=== PATIENT | female | born 1960 | race American Indian/Alaskan Native ===

== ENCOUNTER 2022-02-21 13:13 | Emergency (ER) | payer MEDICARE ==
[2022-02-21 13:21] VITALS: BP 171/99
[2022-02-21 14:04] LABS: Basophils % (Auto) 0.3 % (0.0-1.8); Eosinophils % (Auto) 0.1 % (0.0-4.3); Hematocrit 45.8 % (30.3-42.9); Lymphocytes # (Auto) 1.1 K/mm3 (1.2-5.4); Lymphocytes % (Auto) 14.7 % (13.4-35.0); Mean Corpuscular HGB Conc 33 % (30-34); Mean Corpuscular Volume 86 fl (79-97); Monocytes # (Auto) 0.3 K/mm3 (0.0-0.8); Monocytes % (Auto) 3.5 % (0.0-7.3); Platelet Count 244 K/mm3 (140-440); Red Blood Count 5.32 M/mm3 (3.65-5.03); Red Cell Distribution Width 14.3 % (13.2-15.2)
--- NOTE | 2022-02-21 14:08 | XRay Report ---
CHEST 2 VIEWS INDICATION / CLINICAL INFORMATION: Dyspnea. COMPARISON: None available. FINDINGS: SUPPORT DEVICES: None. HEART / MEDIASTINUM: The aorta is ectatic. No other significant abnormality. LUNGS / PLEURA: Generalized bilateral mild interstitial opacities are noted. No dense area of consoli dation. No significant pleural effusion. No pneumothorax. ADDITIONAL FINDINGS: There is mild thoracic spondylosis. IMPRESSION: Questionable mild interstitial edema versus other chronic interstitial changes. Signer Name: Shay Narvaez MD Signed: 02/21/2022 2:04 PM Workstation Name: [id number]
[2022-02-21 14:16] LABS: INR 0.93 (0.87-1.13)
[2022-02-21 14:22] LABS: Alanine Aminotransferase 19 units/L (7-56); Albumin 4.8 g/dL (3.9-5); BUN/Creatinine Ratio 10; Blood Urea Nitrogen 8 mg/dL (7-17); Calcium 10.5 mg/dL (8.4-10.2); Hemolysis Index 6
--- NOTE | 2022-02-22 13:49 | Electrocardiograph Report ---
[facility] Test Date: 2022-02-21 Test Time: 13:25:38 Pat Name: MARINO SUAREZ Department: Room: Gender: F [employer] Technologist: REJI : 1960 Requested By: ED DOC Order Number: [id number] Reading MD: Brody Quinn Measurements Intervals Kaycee Rate: 66 P: 20 DE: 175 QRS: 10 QRSD: 92 T: 44 QT: 419 QTc: 438 Interpretive Statements Sinus arrhythmia Probable left atrial enlargement No previous ECG available for comparison Electronically Signed On 02-22-2022 13:49:38 EDT by Brody Quinn
== END 2022-02-21 18:00 | disposition left against medical advice (07) ==
LOC: ED 13:13
DX: F41.9 Anxiety disorder, unspecified (principal); Z53.21 Procedure and treatment not carried out due to patient leaving prior to being seen by health care provider
CPT/HCPCS: 36415; 71046; 80053; 84484; 85025; 85610; 85730; 93005